=== PATIENT | male | born 1995 | race Caucasian/White ===

== ENCOUNTER 2018-06-08 19:14 | Emergency (ER) | payer OTHER ==
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
[2018-06-08 20:31] VITALS: BP 134/84
--- NOTE | 2018-06-08 21:40 | Diagnostic Imaging Report ---
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 A left malar contusion is present. The facial bones and mandible are intact. No significant sinus disease is observed. The globes and remaining orbits are unremarkable. Impression: Left malar contusion without fracture. Electronically signed on Jun 08, 2018 8:17:36 PM CDT by: Logan ROTHMAN
== END 2018-06-08 20:30 | disposition home or self-care (01) ==
LOC: ED 19:14
DX: S05.12XA Contusion of eyeball and orbital tissues, left eye, initial encounter (principal); Y35.811A Legal intervention involving manhandling, law enforcement official injured, initial encounter; Y93.89 Activity, other specified; Y92.9 Unspecified place or not applicable; Y99.0 Civilian activity done for income or pay
CPT/HCPCS: 70486; 99283; 99284